=== PATIENT | male | born 1940 | race African-American/Black ===

== ENCOUNTER 2020-07-24 16:24 | Emergency (ER) | payer OTHER, MEDICARE ==
[2020-07-24 16:36] VITALS: BMI 23.5
[2020-07-24] MEDS ORDERED: FAMOTIDINE 20 MG TABLET PO ONE (17:49)
[2020-07-24] MEDS ORDERED: MAG HYDROX/AL HYDROX/SIMETH -MYLANTA- ORAL SUSPENSION PO ONE ×2 (17:49)
[2020-07-24 18:04] LABS: URINE APPEARANCE CLOUDY; URINE BILIRUBIN NEGATIVE (NEGATIVE); URINE COLOR YELLOW; URINE GLUCOSE (UA) NEGATIVE (NEGATIVE); URINE KETONE NEGATIVE (NEGATIVE); URINE LEUK ESTERASE 3+ (NEGATIVE); URINE NITRITE NEGATIVE (NEGATIVE); URINE PROTEIN 1+ (NEGATIVE); URINE UROBILINOGEN 0.2 mg/dL (0.2-1.0)
[2020-07-24 18:11] LABS: EPI CELLS 224.6 /uL (0-25.1); HYALINE CASTS 4.75 /uL (0-3.1); URINE BACTERIA 47.7 /uL (0-1359); URINE RBC 7.5 /uL (0-23.9); URINE WBC 213.8 /uL (0-25.8)
[2020-07-24] MEDS ORDERED: FAMOTIDINE 20 MG TABLET ONE (18:42)
[2020-07-24] MEDS ORDERED: MAG HYDROX/AL HYDROX/SIMETH 30 ML UNIT-DOSE CUP ONE (18:42)
[2020-07-24] MEDS ORDERED: CEPHALEXIN MONOHYDRATE 500 MG CAPSULE (UD) PO ONE (18:43)
[2020-07-24 19:01] VITALS: BP 140/90; PULSE 91; TEMP 98.1
== END 2020-07-24 19:00 | disposition home or self-care (01) ==
LOC: JER 16:24
DX: R33.9 Retention of urine, unspecified (principal); N39.0 Urinary tract infection, site not specified
CPT/HCPCS: 81003; 87086; 87186; 99283-25